=== PATIENT | female | born 1955 | race Caucasian/White ===

== ENCOUNTER 2016-11-01 14:22 | Emergency (ER) | payer OTHER ==
--- NOTE | 2016-11-01 14:32 | ED Physician Documentation ---
General Adult - HISTORIAN Historian: patient - HPI Stated Complaint: insect sting, recheck Chief Complaint: General Adult Onset: days ago Timing: still present Further Comments: yes (Pt is a 61 yo female who was stung by a bee or wasp on her R elbow last week. She was seen in another ER and rx'd prednisone. Pt states swelling and redness have improved, but the area still is red and she is usually a fast healer. Pt want the sting site rechecked. Pt has been using benadryl cream on the lesion, in addition to the oral prednisone she has been taking.) - ROS CONST: no problems EYES/ENT: none CVS/RESP: none GI/: none MS/SKIN/LYMPH: other (lesion R elbow s/p bee sting) - PAST HX Past History: other (seizure d/o, CVA, DM, Mitral valve prolapse) Surgeries/Procedures: hysterectomy Allergies/Adverse Reactions: Allergies Allergy/AdvReac Type Severity Reaction Status Date / Time hydrocodone [Hydrocodone] Allergy Severe Hives Verified 11/01/16 14:38 nalbuphine HCl [From Nubain] Allergy Severe Hives Verified 11/01/16 14:38 Home Medications: Ambulatory Orders Medication Instructions Recorded Carbamazepine [Tegretol Xr] 600 mg PO BID 06/07/12 Levetiracetam [Keppra Xr] 1,500 mg PO BID #180 06/07/12 Aspirin EC [Ecotrin] 81 mg PO D 09/23/14 Clopidogrel Bisulfate [Clopidogrel] 75 mg PO D 09/23/14 Baclofen 10 mg PO TID PRN #21 tablet 01/04/15 - SOCIAL HX Smoking History: cigarettes - FAMILY HX Family History: No (non-contributory) - VITAL SIGNS Vital Signs: Vital Signs Temp Pulse Resp BP Pulse Ox 128/68 01/04/15 15:58 - REVIEWED ASSESSMENTS Nursing Assessment Reviewed: Yes Vitals Reviewed: Yes Progress - Progress Progress: Triamcinolone 0.1% cream. Apply to affected area twice daily. General Adult Physical Exam - PHYSICAL EXAM GENERAL APPEARANCE: no distress NECK: normal inspection RESPIRATORY: no resp distress CVS: reg rate & rhythm SKIN: other (dull erythema R elbow, 3 cm diameter. Does not appear infected.) EXTREMITIES: normal range of motion NEURO: oriented X3, motor nml, sensation nml Discharge Clincal Impression: insect sting recheck Referrals: Primary Doctor,No [Primary Care Provider] - Home Medications: Ambulatory Orders Carbamazepine [Tegretol Xr] 600 mg PO BID 06/07/12 Levetiracetam [Keppra Xr] 1,500 mg PO BID #180 06/07/12 Aspirin EC [Ecotrin] 81 mg PO D 09/23/14 Clopidogrel Bisulfate [Clopidogrel] 75 mg PO D 09/23/14 Baclofen 10 mg PO TID PRN #21 tablet 01/04/15 Condition: Good Disposition: 01 HOME, SELF-CARE Decision to Admit: NO Decision Time: 14:50
[2016-11-01 14:49] VITALS: BP 150/66
== END 2016-11-01 14:54 | disposition home or self-care (01) ==
LOC: ED 14:22
DX: W57.XXXD Bitten or stung by nonvenomous insect and other nonvenomous arthropods, subsequent encounter (principal); Y93.9 Activity, unspecified; Y99.9 Unspecified external cause status
CPT/HCPCS: 99283

== ENCOUNTER 2018-04-25 17:20 | Emergency (ER) | payer OTHER ==
[2018-04-25] MEDS ORDERED: IPRATROPIUM/ALBUTEROL SULFATE 3 ML AMPUL.NEB NEB ONE ×3 (17:27→17:55)
[2018-04-25] MEDS ORDERED: methylPREDNISolone SOD SUCC 125 MG/2 ML VIAL IVP ONE (17:55)
[2018-04-25 18:14] LABS: BASOPHILS % 0.5 (0.0-1.5); EOSINOPHILS % 1.8 % (0.0-6.8); MEAN CORPUSCULAR HEMOGLOBIN 32.3 pg (28.0-34.0); MONOCYTES % 5.7 % (0.0-11.0); NEUTROPHILS # 5.5 # k/uL (1.4-7.7)
[2018-04-25 18:20] LABS: eGFR (Non-African) > 60
--- NOTE | 2018-04-25 18:34 | ED Physician Documentation ---
Dyspnea - HISTORIAN Historian: patient - HPI Stated Complaint: cough, SOA Chief Complaint: Wheezing Additional Information: Patient is a 63-year-old female that presents to the ER with c/o shortness of breath. Patient states that she started feeling a little short of breath 2 days ago. [place] and states shortness of breath worsened this morning. She states that she is a smoker and smoke 1/2 PPD but has been trying to quit with no success. She denies any fever or chills. States that she has had a productive cough but it is clear. Oxygen saturation was <89% on RA- pt is not on oxygen at home. She is unable to lie flat without wheezing. Onset: days ago Duration: continues in ED Initiating Event: exposure to smoke Context: SOA started 2 days ago, casino last night, worsened this morning Severity: moderate Exacerbated By: laying flat, coughing Associated Symptoms: chest discomfort (with coughing), productive cough. denies: chills, fever - ROS CONST: no problems EYES/ENT: nasal congestion. 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) Surgeries/Procedures: cholecystectomy, hysterectomy, other (brain aneurysms x2 (1987 & coil in 2004), TBL) Other History: CVA Immunizations: UTD Allergies/Adverse Reactions: Allergies Allergy/AdvReac Type Severity Reaction Status Date / Time hydrocodone [Hydrocodone] Allergy Severe Hives Verified 04/25/18 17:45 nalbuphine HCl [From Nubain] Allergy Severe Hives Verified 04/25/18 17:45 Home Medications: Ambulatory Orders Medication Instructions Recorded Carbamazepine [Tegretol Xr] 600 mg PO BID 06/07/12 Levetiracetam [Keppra Xr] 1,500 mg PO BID #180 06/07/12 Aspirin EC [Ecotrin] 81 mg PO D 09/23/14 Clopidogrel Bisulfate [Clopidogrel] 75 mg PO D 09/23/14 Losartan Potassium [Cozaar] 50 mg PO D 04/25/18 - SOCIAL HX Smoking History: less than 1 pack/day Alcohol Use: none Drug Use: none - FAMILY HX Family History: none - VITAL SIGNS Vital Signs: Vital Signs Temp Pulse Resp BP Pulse Ox 99.5 F 94 H 28 H 188/85 88 L 04/25/18 17:20 04/25/18 17:20 04/25/18 17:20 04/25/18 17:20 04/25/18 17:20 - REVIEWED ASSESSMENTS Nursing Assessment Reviewed: Yes Vitals Reviewed: Yes Progress - Progress Progress: Patient received Duoneb HFN tx immediately upon arrival- wheezing greatly improved- patient able to speak full sentences - EKG/XRAY/CT EKG: NSR (with occasional PVC rate 79) ED Results Lab/Radiology - Lab Results Lab Results: Lab Results 04/25/18 04/25/18 17:30 17:30 WBC 8.30 K/ul K/ul (4.00-12.00) RBC 4.65 M/ul M/ul (3.90-5.20) Hgb 15.0 g/dL g/dL (12.0-16.0) Hct 44.9 % % (34.5-46.5) MCV 96.0 fl fl (80.0-100.0) MCH 32.3 pg pg (28.0-34.0) MCHC 33.5 g/dL g/dL (30.0-36.0) RDW 12.3 % % (11.3-14.3) Plt Count 279 K/mm3 K/mm3 (130-400) Neut % (Auto) 66.4 % % (39.0-79.0) Lymph % (Auto) 25.6 % % (16.0-50.0) [place] % (Auto) 5.7 % % (0.0-11.0) Eos % (Auto) 1.8 % % (0.0-6.8) Baso % (Auto) 0.5 (0.0-1.5) Neut # (Auto) 5.5 # k/uL # k/uL (1.4-7.7) Lymph # (Auto) 2.1 # k/uL # k/uL (0.6-4.0) [place] # (Auto) 0.5 # k/uL # k/uL (0.0-0.9) Eos # (Auto) 0.2 # k/uL # k/uL (0.0-0.6) Baso # (Auto) 0.0 # k/uL # k/uL (0.0-0.5) Sodium 137 mmol/L mmol/L (136-145) Potassium 3.8 mmol/L mmol/L (3.5-5.1) Chloride 101 mmol/L mmol/L (98-107) Carbon Dioxide 30 mmol/L mmol/L (22-30) BUN 10 mg/dL mg/dL (7-17) Creatinine 0.72 mg/dL mg/dL (0.52-1.04) Estimated Creat Clear 95 Est GFR ( Amer) > 60 (60 - ) Est GFR (Non-Af Amer) > 60 (60 - ) Glucose 114 mg/dL H mg/dL (74-106) Calcium 8.3 mg/dL L mg/dL (8.4-10.2) Total Bilirubin 0.3 mg/dL mg/dL (0.2-1.3) AST 27 U/L U/L (15-46) ALT 20 U/L U/L (13-69) Alkaline Phosphatase 84 U/L U/L (38-126) Total Protein 7.4 g/dL g/dL (6.3-8.2) Albumin 4.4 g/dL g/dL (3.5-5.0) - Radiology Radiology Impressions: Examination: PA and lateral chest. History: Evaluate lung holliday. SOA PT STATES Hx OF SMOKING, NO CHEST PAIN, SOA x1 DAY PT WAS SHIELDED. Comparison exam: None provided. Findings: PA and lateral views of the chest demonstrates a normal cardiac and mediastinal silhouette. Tortuous aorta with vascular calcifications. Chronic interstitial changes. No focal infiltrate. No blunting of the costophrenic margins. Osseous structures are appropriate for age. Impression: Chronic interstitial changes. No acute pulmonary process. - Orders Orders: ED Orders Category Date Time Status Place IV Lock 1T Care 04/25/18 17:55 Active CHEST 2VIEW [RAD] Stat Exams 04/25/18 Taken BLOOD CULTURE Stat Lab 04/25/18 17:30 Ordered CBC/PLATELET/DIFF Routine Lab 04/25/18 17:30 Completed CMP Routine Lab 04/25/18 17:30 Completed Ipratropium/Albuterol Sulfate [Duoneb] Med 04/25/18 17:27 Discontinued 3 ml NEB .STK-MED ONE Ipratropium/Albuterol Sulfate [Duoneb] Med 04/25/18 17:55 Discontinued 3 ml NEB NOW ONE Ipratropium/Albuterol Sulfate [Duoneb] Med 04/25/18 17:55 Discontinued 3 ml NEB NOW ONE methylPREDNISolone SOD SUCC [Solu-MEDROL] Med 04/25/18 17:55 Discontinued 125 mg IVP NOW ONE Oxygen Daily Oxygen 04/25/18 18:00 Ordered Dyspnea Physical Exam - EXAM General Appearance: alert, mild distress EENT: eye inspection normal, ENT inspection normal, pharynx normal, ALVAREZ Neck: nml inspection Respiratory: accessory muscle use, wheezes CVS: pulses equal, tachycardia Abdomen: non-tender Skin: color nml Extremities: normal range of motion Neuro/Psych: oriented x3, CN's nml as tested, motor nml, sensation nml, m ood/affect nml Discharge Clincal Impression: Acute exacerbation of chronic obstructive pulmonary disease (COPD) Referrals: Primary Doctor,Claudine [Primary Care Provider] - 2 Days Comments: Spoke with patient and she agrees with admission. Will admit patient due to wheezing reproducing shortly after breathing treatments. Wheezing increasingly gets worse when lying flat. Short of breath when oxygen removed- feels better with oxygen on. Will admit patient for IV steroids, HFN q 4 hrs, and Pulmicort BID Condition: Good Disposition: ADMITTED INPATIENT Decision to Admit: [id number] Decision Time: 18:50
--- NOTE | 2018-04-25 18:35 | Diagnostic Imaging Report ---
LUIS FERNANDO GALLAGHER [facility] [address] [facility] [address] [address] Report Submission Date: Apr 25, 2018 6:33:25 PM VACCINE MANAGER Patient Study Name: ALICE VÁZQUEZ Date: Apr 25, 2018 6:08:21 PM VACCINE MANAGER Modality Type: DX Gender: F Description: CHEST 2VIEW : 51 Institution: [facility] Physician: LUIS FERNANDO GALLAGHER Examination: PA and lateral chest. History: Evaluate lung holliday. SOA PT STATES Hx OF SMOKING, NO CHEST PAIN, SOA x1 DAY PT WAS SHIELDED. Comparison exam: None provided. Findings: PA and lateral views of the chest demonstrates a normal cardiac and mediastinal silhouette. Tortuous aorta with vascular calcifications. Chronic interstitial changes. No focal infiltrate. No blunting of the costophrenic margins. Osseous structures are appropriate for age. Impression: Chronic interstitial changes. No acute pulmonary process. Electronically signed on Apr 25, 2018 6:33:25 PM VACCINE MANAGER by: Anup AMES
[2018-04-25] MEDS ORDERED: BUDESONIDE 0.5MG/2ML AMPUL.NEB NEB ONE (18:45)
[2018-04-25 19:02] VITALS: BP 188/81
== END 2018-04-25 19:00 | disposition other institution (70) ==
LOC: ED 17:20
DX: J44.1 Chronic obstructive pulmonary disease with (acute) exacerbation (principal); Z72.0 Tobacco use
CPT/HCPCS: 36415; 71046; 80053; 85025; 87040; 93005; 94640; 96374; 99285; J2930; J7626; S1016

== ENCOUNTER 2018-04-25 19:07 | Inpatient (IN) | payer OTHER ==
[2018-04-25] MEDS ORDERED: 0.9 % SODIUM CHLORIDE 1,000 ML IV SCH (19:15)
[2018-04-25 19:35] VITALS: BMI 27.8
[2018-04-25] MEDS: IPRATROPIUM/ALBUTEROL SULFATE 3 ML AMPUL.NEB NEB SCH (22:11)
[2018-04-25] MEDS: methylPREDNISolone SOD SUCC 40 MG/ML VIAL IVP SCH (22:12)
[2018-04-25] MEDS: BUDESONIDE 0.5MG/2ML AMPUL.NEB NEB SCH (22:13)
[2018-04-25] MEDS ORDERED: ACETAMINOPHEN 325 MG TABLET ONE (22:14)
[2018-04-25] MEDS ORDERED: KETOROLAC TROMETHAMINE 30 MG/1ML VIAL ONE (22:14)
[2018-04-25] MEDS ORDERED: NICOTINE 14mg PATCH.TD24 TD ONE (22:14)
[2018-04-25] MEDS ORDERED: ACETAMINOPHEN 325 MG TABLET PO PRN ×2 (22:18→22:34)
[2018-04-25] MEDS ORDERED: KETOROLAC TROMETHAMINE 30 MG/1ML VIAL IVP ONE (22:18)
[2018-04-25] MEDS: levETIRAcetam 500 MG TABLET PO SCH (22:24)
[2018-04-25] MEDS: CARBAMAZEPINE 200 MG TABLET PO SCH (22:25)
[2018-04-25] MEDS: NICOTINE 14mg PATCH.TD24 TD SCH (22:42)
[2018-04-26] MEDS: IPRATROPIUM/ALBUTEROL SULFATE 3 ML AMPUL.NEB NEB SCH ×5 (00:41→17:20)
[2018-04-26] MEDS: methylPREDNISolone SOD SUCC 40 MG/ML VIAL IVP SCH ×2 (04:12→14:08)
[2018-04-26 07:25] LABS: BASOPHILS % 0.7 (0.0-1.5); EOSINOPHILS % 0.9 % (0.0-6.8); MEAN CORPUSCULAR HEMOGLOBIN 32.1 pg (28.0-34.0); MONOCYTES % 6.6 % (0.0-11.0); NEUTROPHILS # 4.3 # k/uL (1.4-7.7)
--- NOTE | 2018-04-26 07:28 | History and Physical Report ---
History of Present Illnes - History of Present Illness Reason for Visit: Shortness of Breath History of Present Illness: Patient is a 63-year-old female that presents to the ER with c/o shortness of breath. Patient states that she started feeling a little short of breath 2 days ago. [place] and states shortness of breath worsened this morning. She states that she is a smoker and smokes 1/2 PPD but has been trying to quit with no success. She denies any fever or chills. States that she has had a productive cough but it is clear. Oxygen saturation was <89% on RA- pt is not on oxygen at home. She is unable to lie flat without wheezing. She feels tightness/heaviness to her chest but says its due to her breathing- she has never been diagnosed with COPD. Will admit patient acute due to no improvement of wheezing after 3 HFNs in the ER- oxygen sats would drop < 90% on RA. Patient will be admitted for scheduled HFN txs, IV steroids, and oxygen. 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: CVA, Seizure (S/p aneurysm in "88" and coiling in "05") - Past Surgical History Past Surgical History: Cholecystectomy, Hysterectomy, Tubal Ligation - Past Social History Smoke: 1 pack per day Alcohol: Rare Drugs: None Lives: With Family - Health Maintenance Health Maintenance: Cholesterol, Influenza Vaccine, Pneumococcal Vaccine Influenza Vaccine: Current for this Influenza Season Pneumonia Vaccine: Yes Resuscitation Status: Resusciation Status Resuscitation Status Full Code - Unable to Obtain History Unable to Obtain: No Review of Systems - Review of Systems Constitutional: negative: Fever, Chills Eyes: negative: pain, vision change ENT: negative: Ear Pain, Nose Pain, Throat Pain Respiratory: Cough, SOB with Excertion, Wheezing (when lying flat) Cardiovascular: negative: Chest Pain, Light Headedness Gastrointestinal: negative: Nausea, Vomiting Genitourinary: negative: Dysuria Musculoskeletal: negative: Back Pain Skin: negative: Rash Neurological: negative: Weakness - Medications/Allergies Allergies/Adverse Reactions: Allergies Allergy/AdvReac Type Severity Reaction Status Date / Time hydrocodone [Hydrocodone] Allergy Severe Hives Verified 04/25/18 17:45 nalbuphine HCl [From Nubain] Allergy Severe Hives Verified 04/25/18 17:45 Current Inpatient Medications: Current Inpatient Medications Acetaminophen (Tylenol) 650 mg PO Q4H PRN PRN Reason: PAIN Last Admin: 04/25/18 23:57 Dose: 650 mg Albuterol/Ipratropium (Duoneb) 3 ml NEB Q4 [facility] Last Admin: 04/26/18 04:58 Dose: 3 ml Aspirin (Ecotrin) 81 mg PO DAILY [facility] Budesonide (Pulmicort) 0.5 mg NEB BID [facility] Last Admin: 04/25/18 22:13 Dose: Not Given Carbamazepine (Tegretol) 600 mg PO BID [facility] Last Admin: 04/25/18 22:25 Dose: 600 mg Clopidogrel Bisulfate (Plavix) 75 mg PO DAILY [facility] Sodium Chloride (Normal Saline) 1,000 mls @ 75 mls/hr IV Q10H [facility] Last Admin: 04/25/18 19:43 Dose: 75 mls/hr Ketorolac Tromethamine (Toradol) 30 mg IVP NOW ONE Stop: 04/25/18 22:19 Last Admin: 04/25/18 22:25 Dose: 30 mg Levetiracetam (Keppra) 1,500 mg PO BID [facility] Last Admin: 04/25/18 22:24 Dose: 1,500 mg Losartan Potassium (Cozaar) 50 mg PO DAILY [facility] Methylprednisolone Sodium Succinate (Solu-Medrol) 60 mg IVP Q8 [facility] Last Admin: 04/26/18 04:12 Dose: 60 mg Nicotine (Habitrol 14mg) 1 patch TD DAILY [facility] Last Admin: 04/25/18 22:42 Dose: 1 patch Exam - Exam Vital Signs: Vital Signs (72 hours) 04/25/18 04/25/18 04/25/18 19:00 19:10 19:27 Temperature 98.3 F Pulse Rate 82 Pulse Rate [ 88 Right] Respiratory 16 Rate Blood Pressure 188/81 Blood Pressure 188/81 160/80 [Right Arm] O2 Sat by Pulse 95 95 Oximetry 04/25/18 04/25/18 04/25/18 19:31 22:00 23:10 Temperature 98.3 F 98.4 F Pulse Rate 78 Pulse Rate [ 79 91 H Right] Respiratory 20 20 Rate Blood Pressure Blood Pressure 160/80 173/75 [Right Arm] O2 Sat by Pulse 95 92 95 Oximetry 04/25/18 04/26/18 04/26/18 23:27 01:29 03:00 Temperature 97.5 F L 97.9 F Pulse Rate 74 Pulse Rate [ 74 88 80 Right] Respiratory 20 16 20 Rate Blood Pressure Blood Pressure 157/76 153/60 [Right Arm] O2 Sat by Pulse 95 92 94 Oximetry 04/26/18 05:00 Temperature 97.4 F L Pulse Rate Pulse Rate [ 78 Right] Respiratory 18 Rate Blood Pressure Blood Pressure 160/72 [Right Arm] O2 Sat by Pulse 95 Oximetry General: Alert, Oriented to Person, Oriented to Place, Oriented to Time, Cooperative, Mild distress HEENT: Atraumatic, PERRLA, Mouth Mucous membr. moist/[place], Nose Mucous membr. moist/[place] Neck: Normal Range of Motion Carotids: No bruit Lungs: Clear to auscultation (Lungs are clear this morning), Normal air movement, Speaks full Sentences Cardiovascular: Regular rate, Normal S1, Normal S2 Peripheral Edema: None Peripheral Pulses: 2+ Abdomen: Normal bowel sounds, Soft, No tenderness Integumentary: Normal, [place], Warm, Dry Extremities: No edema, Normal pulses, No tenderness/swelling Neurological: Normal gait, Normal speech, Strength Equal Bilat, Sensation intact, Cranial nerves 3-12 NL Psych/Mental Status: Mental status NL, Mood NL, Appropriate Affect - Laboratory Results Laboratory Results: Laboratory Results 04/26/18 05:30 WBC 6.70 RBC 4.35 Hgb 13.9 Hct 41.8 MCV 96.0 MCH 32.1 MCHC 33.4 RDW 12.5 Plt Count 256 Neut % (Auto) 64.8 Lymph % (Auto) 27.0 [place] % (Auto) 6.6 Eos % (Auto) 0.9 Baso % (Auto) 0.7 Neut # (Auto) 4.3 Lymph # (Auto) 1.8 [place] # (Auto) 0.4 Eos # (Auto) 0.1 Baso # (Auto) 0.1 Assessment/Plan - Assessment/Plan (1) Acute exacerbation of chronic obstructive pulmonary disease (COPD) Status: Acute Current Visit: No Assessment: Wheezing on exertion with SOA, requiring oxygen Plan: Scheduled HFN tx including Pulmicort, IV steroids, Oxygen, IVF Will get with RT and have patient complete a 6 minute walk without oxygen and see how she does (2) Seizure Status: Acute Current Visit: Yes Assessment: Stable on home medications Plan: Will continue on home medications VTE Assessment - RISK FACTOR SCORE VTE RISK FACTOR SCORES: AGE OVER 60 YEARS, SMOKER - RISK VTE MODERATE RISK: SCORE OF 2 (RISK PROXIMAL DVT 2-4%) PROPHYAXIS NEEDED (pt on plavix/aspirin)
[2018-04-26 07:30] LABS: eGFR (Non-African) > 60
[2018-04-26] MEDS ORDERED: ASPIRIN 81 MG CHEW TAB ONE (08:12)
[2018-04-26] MEDS: NICOTINE 14mg PATCH.TD24 TD SCH (08:54)
[2018-04-26] MEDS ORDERED: ASPIRIN EC 81 MG TABLET.DR PO SCH (09:00)
[2018-04-26] MEDS ORDERED: CLOPIDOGREL BISULFATE 75 MG TABLET PO SCH (09:00)
[2018-04-26] MEDS ORDERED: NICOTINE 14mg PATCH.TD24 TD SCH (09:00)
[2018-04-26] MEDS ORDERED: LOSARTAN POTASSIUM 50 MG TABLET PO SCH (09:00)
[2018-04-26] MEDS: CARBAMAZEPINE 200 MG TABLET PO SCH ×2 (09:02→20:02)
[2018-04-26] MEDS: levETIRAcetam 500 MG TABLET PO SCH ×2 (09:02→20:03)
[2018-04-26] MEDS: BUDESONIDE 0.5MG/2ML AMPUL.NEB NEB SCH (09:37)
--- NOTE | 2018-04-26 18:56 | Discharge Summary ---
Discharge Summary - Discharge Sumary History of Present Illness: Patient is a 63-year-old female that presents to the ER with c/o shortness of breath. Patient states that she started feeling a little short of breath 2 days ago. [place] and states shortness of breath worsened this morning. She states that she is a smoker and smokes 1/2 PPD but has been trying to quit with no success. She denies any fever or chills. States that she has had a productive cough but it is clear. Oxygen saturation was <89% on RA- pt is not on oxygen at home. She is unable to lie flat without wheezing. She feels tightness/heaviness to her chest but says its due to her breathing- she has never been diagnosed with COPD. Will admit patient acute due to no improvement of wheezing after 3 HFNs in the ER- oxygen sats would drop < 90% on RA. Patient will be admitted for scheduled HFN txs, IV steroids, and oxygen. Condition at Discharge: Stable Home Medications: Ambulatory Orders Medication Instructions Recorded Carbamazepine [Tegretol Xr] 600 mg PO BID 06/07/12 Levetiracetam [Keppra Xr] 1,500 mg PO BID #180 06/07/12 Aspirin EC [Ecotrin] 81 mg PO D 09/23/14 Clopidogrel Bisulfate [Clopidogrel] 75 mg PO D 09/23/14 Losartan Potassium [Cozaar] 50 mg PO D 04/25/18 Albuterol Sulfate [Proair Hfa] 8.5 gm IH Q4 PRN #1 hfa.aer.[email or web address] 04/26/18 Fluticasone/Salmeterol [Advair 1 each IH DAILY #1 blst.w.dev 04/26/18 100-50 Diskus] predniSONE [Deltasone] 40 mg PO DAILY 5 Days #10 tablet 04/26/18 Consultations this Visit: Other (Educated patient on following up with PCP & referral to Co Founder And President when she gets home) Procedures this Visit: None Allergies/Adverse Reactions: Allergies Allergy/AdvReac Type Severity Reaction Status Date / Time hydrocodone [Hydrocodone] Allergy Severe Hives Verified 04/25/18 17:45 nalbuphine HCl [From Nubain] Allergy Severe Hives Verified 04/25/18 17:45 Discharge Summary: Patient insisting on going home today- she has to travel back home to meet her daughter and chart picker granddaughter. She is not from this area. She has been cooperative with her treatment. Patient states that she has never been diagnosed with COPD in the past- she states that she has no intention to quit smoking but states that she may try. director of business services has arranged for patient to leave with portable oxygen and home oxygen. She does very well on just a couple of liters. She will take medications as directed- she will schedule appointment with PCP as soon as she gets back home- she voiced understanding on the importance of getting referral to frozen foods manager to better care for her respiratory diagnosis. Hospital Course: Patient received scheduled HFNs and IV steroids, and Oxygen - Final Diagnosis (1) Acute exacerbation of chronic obstructive pulmonary disease (COPD) Problems: Patient will chart picker medications and take as directed she is being sent home with home oxygen/portable she will follow up with PCP and Pulmonology She will try to stop smoking (SHE IS NOT TO SMOKE NEAR OXYGEN- SHE VOICED UNDERSTANDING) Right or Left: Right (2) Seizure Problems: Continue with home medications Right or Left: Right
[2018-04-26 21:01] VITALS: BP 164/74
== END 2018-04-26 20:40 | disposition home or self-care (01) | DRG 192 ==
LOC: SOUTH 19:07
PROVIDERS: ADMIT Nurse Practitioner Family; ATTEND Nurse Practitioner Family
DX: J44.1 Chronic obstructive pulmonary disease with (acute) exacerbation (principal); F17.210 Nicotine dependence, cigarettes, uncomplicated; Z86.69 Personal history of other diseases of the nervous system and sense organs
CPT/HCPCS: 80053; 85025; 94640; 94760; 94761; J1885; J2920; J7030; J7626; 99221; 99238; J1030